=== PATIENT | male | born 1985 | race Hispanic/Latino ===

== ENCOUNTER 2017-05-30 16:55 | Inpatient (IN) | payer MEDICAID, OTHER ==
[2017-05-30 20:54] LABS: BASO % 0.3 % (0.0-2.0); EOS # 0.1 K/uL (0.0-0.7); EOS % 1.8 % (0.0-4.0); HEMOGLOBIN 10.9 g/dL (12.0-18.0); LYMPH # 1.5 K/uL (1.0-4.3); LYMPH % 25.5 % (20.0-40.0); MEAN CELL VOLUME 86.2 fL (80.0-94.0); MEAN CORPUSCULAR HEMOGLOBIN 28.6 pg (27.0-31.0); MEAN CORPUSCULAR HGB CONC 33.2 g/dL (33.0-37.0); MONO # 0.5 K/uL (0.0-0.8); MONO % 7.7 % (0.0-10.0); NEUT # 3.8 K/uL (1.8-7.0); NEUT % 64.7 % (50.0-75.0); NRBC % 0.1 % (0.0-2.0); RBC 3.82 Mil/uL (4.40-5.90); RED CELL DISTRIBUTION WIDTH 14.5 % (11.5-14.5); WHITE BLOOD COUNT 5.9 K/uL (4.8-10.8)
[2017-05-30 21:02] LABS: ALB/GLOB RATIO 1.2 (1.0-2.1); ALBUMIN 3.8 g/dL (3.5-5.0); ALT/SGPT 50 U/L (21-72); AST/SGOT 45 U/L (17-59); BLOOD UREA NITROGEN 14 mg/dL (9-20); CALCIUM 9.1 mg/dl (8.6-10.4); GFR AFRICAN-AMERICAN > 60; GFR NON-AFRICAN AMERICAN > 60
[2017-05-30 21:04] LABS: SQUAMOUS EPITHIAL < 1 /hpf (0-5); URINE AMORPHOUS SEDIMENT OCC /ul (<OCC); URINE BILIRUBIN NEGATIVE (NEGATIVE); URINE BLOOD NEGATIVE (NEGATIVE); URINE CLARITY Hazy (Clear); URINE COLOR Yellow (YELLOW); URINE GLUCOSE (UA) NORMAL (Normal); URINE LEUKOCYTE ESTERASE TRACE Leu/uL (Negative); URINE NITRATE NEGATIVE (NEGATIVE); URINE PROTEIN NEGATIVE (NEGATIVE); URINE UROBILINOGEN NORMAL mg/dL (0.2-1.0)
[2017-05-30 21:16] LABS: BARBITURATES, UR NEGATIVE (NEGATIVE); BENZODIAZEPINES, UR NEGATIVE (NEGATIVE); OPIATES, UR POSITIVE (NEGATIVE); PHENCYCLIDINE, UR NEGATIVE (NEGATIVE)
--- NOTE | 2017-05-30 21:45 | C.PDOC ---
History Of Present Illness 31 year old male presents to the ED for heroin detox. Patient reports that he uses 8 bags of heroin per day. No other acute complaints at this time. Time Seen by Provider: 05/30/17 19:03 Chief Complaint (Nursing): Substance Abuse History Per: Patient History/Exam Limitations: no limitations Onset/Duration Of Symptoms: Unknown Current Symptoms Are (Timing): Still Present Modifying Factor(s): Narcotics Past Medical History Reviewed: Historical Data, Nursing Documentation, Vital Signs Vital Signs: Last Vital Signs Temp 97.6 F 05/30/17 22:40 Pulse 67 05/30/17 22:40 Resp 18 05/30/17 22:40 BP 111/68 05/30/17 22:40 Pulse Ox 100 05/30/17 22:40 - Medical History PMH: Denies: Diabetes, Hepatitis, HIV, HTN, Seizures, Sexually Transmitted Disease Surgical History: Cholecystectomy Family History: States: Unknown Family Hx - Social History Hx Alcohol Use: Yes Hx Substance Use: Yes - Immunization History Hx Tetanus Toxoid Vaccination: Yes Hx Influenza Vaccination: Yes Hx Pneumococcal Vaccination: No Review Of Systems Except As Marked, All Systems Reviewed And Found Negative. Constitutional: Negative for: Fever, Chills ENT: Negative for: Ear Pain, Throat Pain Cardiovascular: Negative for: Chest Pain Respiratory: Negative for: Cough, Shortness of Breath Gastrointestinal: Negative for: Nausea, Vomiting, Abdominal Pain, Diarrhea Skin: Negative for: Rash Neurological: Negative for: Headache Psych: Positive for: Withdrawal Physical Exam - Physical Exam Appears: No Acute Distress, Chronically Ill (thin, gaunt, wasting) Skin: Normal Color, Warm, Dry Head: Atraumatic, Normacephalic Eye(s): bilateral: Abnormal Pupil (pinpoint pupils) Nose: Normal Oral Mucosa: Moist Tongue: Normal Appearing Lips: Normal Appearing Throat: Normal Neck: Normal, Normal ROM, Supple Cardiovascular: Rhythm Regular Respiratory: Normal Breath Sounds Gastrointestinal/Abdominal: Soft, No Tenderness Back: Normal Inspection Extremity: Normal ROM, No Deformity, Other (track jose left forearm, no abscess ) Neurological/Psych: Oriented x3, Normal Speech ED Course And Treatment - Laboratory Results Result Diagrams: 05/30/17 20:40 05/30/17 20:40 Lab Interpretation: Abnormal (tox + opiate/cocaine) O2 Sat by Pulse Oximetry: 100 Pulse Ox Interpretation: Normal Disposition Doctor Will See Patient In The: Hospital Counseled Patient/Family Regarding: Studies Performed, Diagnosis - Disposition Disposition: HOSPITALIZED Disposition Time: 21:45 Condition: GOOD - Clinical Impression Clinical Impression: Heroin abuse - Scribe Statement The provider has reviewed the documentation as recorded by the Scribe The provider has reviewed the documentation as recorded by the Scribe (Vu Cole) Provider Attestation: All medical record entries made by the Scribe were at my direction and personally dictated by me. I have reviewed the chart and agree that the record accurately reflects my personal performance of the history, physical exam, medical decision making, and the department course for this patient. I have also personally directed, reviewed, and agree with the discharge instructions and disposition.
--- NOTE | 2017-05-30 23:15 | PCM.BM ---
<Gal Singh - Last Filed: 05/30/17 23:13> Treatment Plan Problems - Problems identified on initial assessmt Substance abuse Date Initiated: 05/30/17 Time Initiated: 22:45 Assessment reference: NA Status: Active Treatment assets and liabiliti Patient Assests: cooperative, motivated, self-reliant, ADL independent, physically healthy, good support system, negotiates basic needs Patient Liabilities: physical pain (herniated disks), substance abuse (Heroin) - Milieu Protocol Maintain good personal hygiene: daily Encourage regular showers, every shift Remind patient to perform daily oral care, every shift Assist patient to perform ADL's Conduct patient checks and document Observation sheet: Q15 minutes (For safety) Maintain personal safety: every shift Educate patient to report safety concerns to staff, every shift Monitor environment for contraband/sharps Medication safety: Monitor for expected outcome, potential side effects: every shift, Assess barriers to learning: every shift, Assess readiness for medication education: every shift <Jairo Vilchis - Last Filed: 06/01/17 00:05> - Diagnosis (1) Opioid use disorder, severe, dependence Status: Acute Interventions: 06/01/17 00:05 * Assess 7x/week regarding severity of withdrawal * Educate regarding risks, benefits, side effects and alternatives of medications * Use Motivational Interviewing for abstinence * Use CBT for relapse prevention * Medication management for withdrawal symptoms * Encourage medication assisted treatment * <Shari Santana - Last Filed: 06/02/17 13:10> Family Contact Family involvement: Patient does not wish Family/SO involvement - Goals for Treatment Patient goals for treatment: Complete detox and transition to IOP.
[2017-05-31] MEDS ORDERED: Buprenorphine Hydrochloride 2 mg SL ONE ×2 (08:43→09:45)
--- NOTE | 2017-05-31 13:43 | PCM.PSYCH ---
Initial Psychiatric Evaluation - Initial Psychiatric Evaluation Type of Admission: Voluntary Legal Status: Capacity Chief Complaint (in patient's own words): "I need to detox from methadone and heroin." History of Present Illness and Precipitating Events: Patient is a year old male with no kids who lives in [place] with his mom and dad. 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 He has 6 herniated discs for which he has seen 3 doctors, all of whom put him on painkillers, which is how he was introduced to heroin. After d/c he will see a PT for his back. He started using heroin 2 years ago, shoots 10 bags per day. Last use 2 days ago. He was on a methadone maintenance program prior to detox at [facility] but couldn't continue because he cannot drive and his family has only one car, it was causing his mom to miss too much work. After dc from [facility] [address] [facility] he started an IOP at [facility] for 1 week, then came here. Uses cocaine occasionally. Cigarettes: ppd Alcohol: bottle wine daily. Detox: 1x [facility] Rehab: IOP [facility]- started 1 week ago Psych: denies FamPsych: denies Plan: suboxone Legal: probation for possession charge. Will inform housing management officer. Current Medications: Active Medications Generic Name Dose Route Start Last Admin Trade Name Olegarioq PRN Reason Stop Dose Admin Acetaminophen 650 mg 05/30/17 23:47 05/31/17 10:45 Tylenol 325mg Tab PO 650 mg Q4H PRN Administration Fever greater than 101 F Clonidine HCl 0.1 mg 05/30/17 23:47 05/31/17 10:45 Catapres PO 0.1 mg Q8 PRN Administration COWS Score More or Equal to 5 Hydroxyzine HCl 50 mg 05/31/17 00:21 05/31/17 13:27 Atarax PO 50 mg Q6 PRN Administration Anxiety Loperamide HCl 2 mg 05/30/17 23:47 Imodium PO Q8 PRN Diarrhea Nicotine 1 patch 05/31/17 10:00 05/31/17 09:40 Nicoderm Cq TD 1 patch DAILY NOLAN Administration Ondansetron HCl 4 mg 05/30/17 23:47 Zofran Tab PO Q8 PRN Nausea/Vomiting Trazodone HCl 50 mg 05/31/17 00:05 05/31/17 00:13 Desyrel PO 50 mg HS PRN Administration Insomnia Past Psychiatric History - Past Psychiatric History Pertinent Medical Hx (Current Medical&Sleep Prob, Allergies): Allergies Allergy/AdvReac Type Severity Reaction Status Date / Time No Known Allergies Allergy Verified 05/30/17 18:07 No Known Home Med 05/30/17 Review of Systems - Neurological Neurological: UNREMARKABLE - Psychiatric Psychiatric: UNREMARKABLE Mental Status Examination - Personal Presentation Personal Presentation: Looks stated age - Affect Affect: Constricted, Blunted - Motor Activity Motor Activity: Calm - Reliability in Providing Information Reliability in Providing Information: Good - Speech Speech: Organized - Mood Mood: Depressed - Cognitive Functions Orientation: Person, Place, Situation, Time Sensorium: Lethargic Judgement: Intact, as evidence by: Insight regarding need for hospitalization Memory: Recent intact, as evidence by: Ability to recall events of the day, Remote intact, as evidenced by: Abilit to recall sig. life events - Risk Risk: Withdrawal - Strength & Assets Inventory Strength & Assets Inventory: Family support, Employment status - Limitations Limitations: Other (Legal: pt will call housing management officer) DSM 5 DX - DSM 5 DSM 5 Diagnosis: Opioid Withdrawal Opioid Use d/o - severe - Recommended/Plan of Treatment Treatment Recommendations and Plan of Treatment: Opioid detox Gabapentin for augmentation As needed medications All risks, benefits and alternatives of the meds discussed, and the pt agreed and understood. Attend groups and activities Supportive therapy and psychoeducation [place] for abstinence CBT for relapse prevention Encourage MAT Refer to rehab or IOP, and self-help groups Smoking cessation with MA Nicotine patch 34 min Projected ELOS: 4-5 days Prognosis: Good with treatment Discharge Plan and Discharge Criteria: Rehab and MAT - Smoking Cessation Smoking Cessation Initiated: Yes
[2017-06-01] MEDS ORDERED: Buprenorphine Hydrochloride 2 mg SL SCH (10:00)
[2017-06-01] MEDS: Buprenorphine Hydrochloride 2 mg SL SCH (10:18)
--- NOTE | 2017-06-01 12:16 | PCM.PYCHPN ---
Psychiatric Progress Note - Psychiatric Progress Note Patient seen today, length of contact: 15 Patient Chief Complaint: "I couldn't sleep because of back pain." Problems Identified/Issues Discussed: The pt is seen, chart reviewed, case discussed with staff. The pt is compliant with medications and reports no side-effects. Symptoms are improving but needs more time to stabilize. After care discussed, support and psychoeducation given. Patient seems improved; is socializing and states he feels much better and would like to decrease his dose and leave sooner so that he can attend a work show in [place] this weekend. Medication Change: Yes (detox changes daily) Medical Record Reviewed: Yes Mental Status Examination - Cognitive Function Orientation: Person, Place, Situation, Time Attention: WNL Concentration: WNL - Mood Mood: Depressed - Affect Affect: Constricted - Speech Speech: Appropriate - Suicidal Ideation Suicidal Ideation: No - Homicidal Ideation Homicidal Ideation: No Goal/Treatment Plan - Goal/Treatment Plan Need for Continued Stay: Discharge may exacerbated symptoms Progress Toward Problem(s) and Goals/Treatment Plan: Opioid detox Gabapentin for augmentation As needed medications All risks, benefits and alternatives of the meds discussed, and the pt agreed and understood. Attend groups and activities Supportive therapy and psychoeducation [place] for abstinence CBT for relapse prevention Encourage MAT Refer to rehab or IOP, and self-help groups Smoking cessation with [place] Nicotine patch Return to [facility], arrange for suboxone 15 min - Smoking Cessation Smoking Cessation Initiated: Yes
[2017-06-01 20:59] VITALS: RESP 18
[2017-06-02] MEDS: Buprenorphine Hydrochloride 2 mg SL SCH (10:11)
--- NOTE | 2017-06-02 10:55 | PCM.PYCHPN ---
Psychiatric Progress Note - Psychiatric Progress Note Patient seen today, length of contact: 15 Patient Chief Complaint: "My toothache kept me awake all night." Problems Identified/Issues Discussed: The pt is seen, chart reviewed, case discussed with staff. The pt is compliant with medications and reports no side-effects. Symptoms are improving but needs more time to stabilize. After care discussed, support and psychoeducation given. Patient c/o toothache pain kept him awake, but states he feels better overall. He appears improved and states he is looking forward to d/c tomorrow. He will work with the coordinator to return to [facility] where he would like to start suboxone. Medication Change: Yes (detox changes daily) Medical Record Reviewed: Yes Mental Status Examination - Cognitive Function Orientation: Person, Place, Situation, Time Attention: WNL Concentration: WNL - Mood Mood: Depressed - Affect Affect: Constricted - Speech Speech: Appropriate - Suicidal Ideation Suicidal Ideation: No - Homicidal Ideation Homicidal Ideation: No Goal/Treatment Plan - Goal/Treatment Plan Need for Continued Stay: Discharge may exacerbated symptoms Progress Toward Problem(s) and Goals/Treatment Plan: Opioid detox Gabapentin for augmentation As needed medications All risks, benefits and alternatives of the meds discussed, and the pt agreed and understood. Attend groups and activities Supportive therapy and psychoeducation [place] for abstinence CBT for relapse prevention Encourage MAT Refer to rehab or IOP, and self-help groups; return to [facility], arrange for suboxone Smoking cessation with [place] Nicotine patch 15 min Estimated Date of D/C: 06/03/17
[2017-06-02 13:03] VITALS: O2SAT 99
[2017-06-03 05:47] VITALS: TEMP 97.6
--- NOTE | 2017-06-03 08:37 | PCM.PYCHDC ---
Mental Status Examination - Mental Status Examination Orientation: Person Discharge Summary - Discharge Note Consultations:: List each consultation separately and include: 1. Reason for request. 2. Findings. 3. Follow-up Summary of Hospital Course include:: 1. Description of specific treatment plan utilized for patients during their course of treatmen. 2. Summarize the time- course for resolution of acute symptoms and/or regressed behaviors. 3. Describe issues identified and worked on during hospitalization. 4. Describe medication utilized. 5. Describe medical problems identified and treated. 6. Reassessment of suicide risk Summary of Hospital Course: Patient is a year old male with no kids who lives in [place] with his mom and dad. 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 He has 6 herniated discs for which he has seen 3 doctors, all of whom put him on painkillers, which is how he was introduced to heroin. After d/c he will see a PT for his back. He started using heroin 2 years ago, shoots 10 bags per day. Last use 2 days ago. He was on a methadone maintenance program prior to detox at [facility] but couldn't continue because he cannot drive and his family has only one car, it was causing his mom to miss too much work. After dc from [facility] he started an IOP at [facility] for 1 week, then came here. Uses cocaine occasionally. Cigarettes: ppd Alcohol: bottle wine daily. Detox: 1x [facility] Rehab: IOP [facility]- started 1 week ago Psych: denies FamPsych: denies Plan: suboxone Legal: probation for possession charge. Will inform contracting officer. - Diagnosis (1) Opioid use disorder, severe, dependence Current Visit: Yes Status: Acute - Final Diagnosis (DSM 5) Condition upon Discharge: GOOD Disposition: HOME/ ROUTINE Follow-up Treatment Plan: Opioid detox Gabapentin for augmentation As needed medications All risks, benefits and alternatives of the meds discussed, and the pt agreed and understood. Attend groups and activities Supportive therapy and psychoeducation [place] for abstinence CBT for relapse prevention Encourage MAT Refer to rehab or IOP, and self-help groups; return to [facility], arrange for suboxone Smoking cessation with [place] Nicotine patch 15 min Prescriptions/Medication Reconciliation: traZODone [Desyrel] 100 mg PO HS PRN #30 tab PRN Reason: Insomnia
[2017-06-03] MEDS: Buprenorphine Hydrochloride 2 mg SL SCH (09:13)
[2017-06-03 10:22] VITALS: BP 137/77; PULSE 71
== END 2017-06-03 10:30 | disposition home or self-care (01) | DRG 745 ==
LOC: C.ER 16:55 → C.7D 21:46
PROC: HZ52ZZZ Individual Psychotherapy for Substance Abuse Treatment, Cognitive-Behavioral (ICD-10-PCS; principal; 2017-05-30)
PROC: HZ59ZZZ Individual Psychotherapy for Substance Abuse Treatment, Supportive (ICD-10-PCS; 2017-05-30)
PROC: HZ56ZZZ Individual Psychotherapy for Substance Abuse Treatment, Psychoeducation (ICD-10-PCS; 2017-05-30)
PROC: HZ2ZZZZ Detoxification Services for Substance Abuse Treatment (ICD-10-PCS; 2017-05-30)
DX: F11.23 Opioid dependence with withdrawal (principal); F14.90 Cocaine use, unspecified, uncomplicated; F17.200 Nicotine dependence, unspecified, uncomplicated; K08.89 Other specified disorders of teeth and supporting structures